=== PATIENT | female | born 1985 | race Caucasian/White ===

== ENCOUNTER 2017-04-04 17:22 | Inpatient (IN) | payer OTHER ==
[~2017-04-04] VITALS: Ht 180.3 cm; Wt 165.6 kg
--- NOTE | ~2017-04-04 | HP ---
Unit #: [id number] #: [id number] Patient: PEARL POLO [id number] [place] [address] [id number] MR#: [id number] NAME: PEARL POLO ROOM: P256 Age: 31 Sex: F Admission Date: 04/05/2017 : 1985 Attending Physician: Rafael Carlos M.D. Admitting Physician: Rafael Carlos M.D. Primary Care Physician: Primary Care Physician No HISTORY AND PHYSICAL NOTE Pearl is a 31 year old who was admitted and discharged within the first 24 hours. She was not seen for an H & P. Dictated by... Mary Flores P.A.-C. for Mike Magdaleno/isidra TD: 04/05/2017 19:31 JOB #: [id number] HISTORY AND PHYSICAL Page 1 of 1 X Mary Flores HISTORY AND PHYSICAL
[2017-04-05 13:03] LABS: URINE APPEARANCE TURBID; URINE BILIRUBIN NEG (NEG); URINE BLOOD NEG (NEG); URINE COLOR YELLOW; URINE GLUCOSE NEG (NEG); URINE KETONE 1+ (NEG); URINE LEUKOCYTE ESTERASE NEG (NEG); URINE NITRATE NEG (NEG); URINE PROTEIN NEG (NEG); URINE SPECIFIC GRAVITY 1.024 (1.003-1.035); URINE UROBILINOGEN 0.2 MG/DL (NEG)
[2017-04-05 13:47] LABS: AMPHETAMINE NEG (NEG); BARBITURATES NEG (NEG); BENZODIAZEPINES NEG (NEG); COCAINE NEG (NEG); MARIJUANA NEG (NEG); OPIATES NEG (NEG); TRICYCLIC ANTIDEPRESSANTS NEG (NEG); U METHADONE NEG (NEG)
== END 2017-04-05 13:15 | disposition home or self-care (01) | DRG 881 ==
LOC: P2L 04-05 01:36
PROVIDERS: Psychiatry & Neurology Psychiatry
DX: F32.9 Major depressive disorder, single episode, unspecified (principal)
CPT/HCPCS: 80307; 81003